=== PATIENT | female | born 1955 | race Caucasian/White ===

== ENCOUNTER 2022-11-05 12:14 | Outpatient (OUT) | payer MEDICARE, SELFPAY ==
--- NOTE | 2022-11-05 12:55 | CA_ITS ---
[facility] Test Date: 2022-11-05 Pat Name: Sarah Zeng Department: Room: - Gender: Female Internist: : [id number] Requested By: MAURICE SERVIN Order Number: [id number] Reading MD: STEFFANY GARCIA Interpretive Statements Monophasic doppler waveforms. 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 Electronically Signed On 11-05-2022 22:40:07 EDT by STEFFANY GARCIA
== END 2022-11-05 12:15 | disposition home or self-care (01) ==
LOC: CARD 12:14
PROVIDERS: PCP Family Medicine
DX: I73.9 Peripheral vascular disease, unspecified (principal)
CPT/HCPCS: 93923